=== PATIENT | male | born 1965 | race Caucasian/White ===

== ENCOUNTER → 2020-05-16 11:44 | Outpatient (CLI) | payer OTHER, SELFPAY ==
[2020-05-16 12:10] LABS: COVID19 -Nasal RAPID Negative (Negative)
== END ==
PROVIDERS: Visit Provider Physician Assistant
DX: Z11.59 Encounter for screening for other viral diseases (principal)
CPT/HCPCS: 87635

== ENCOUNTER → 2020-10-17 08:54 | Outpatient (CLI) | payer OTHER, SELFPAY ==
[2020-10-17] MEDS: COVID-19 VACC #1, MRNA(MOD) 100 MCG/0.5 ML VIAL IM (09:01)
== END ==
PROVIDERS: Visit Provider Internal Medicine
DX: Z23 Encounter for immunization (principal)
CPT/HCPCS: 0011A; 91301

== ENCOUNTER → 2020-11-16 09:51 | Outpatient (CLI) | payer OTHER, SELFPAY ==
[2020-11-16] MEDS: COVID-19 VACC #2, MRNA(MOD) 100 MCG/0.5 ML VIAL IM (09:56)
== END ==
PROVIDERS: Visit Provider Internal Medicine
DX: Z23 Encounter for immunization (principal)
CPT/HCPCS: 0012A; 91301